=== PATIENT | male | born 1980 | race Caucasian/White ===

== ENCOUNTER 2023-12-29 16:21 | Emergency (ER) | payer OTHER ==
--- OUTSIDE RECORDS SUMMARY | 2023-12-29 16:23 | XMS REPORT | Continuity of Care Document ---
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 Role Phone FLORA DENIS Attending Clinician Unavailable ETHEL DURAN Attending Clinician Unavailable Payers Payer Name Policy Type Policy Number Effective Date Expirati on Date Source [facility] [id number] 2018 00:00:00 Allergies, Adverse Reactions, Alerts Allergy Name Allergy Type Status Severity Reaction(s) Onset Date Inactive Date Treating Clinician Comments Source NO KNOWN ALLERGIE S Drug Class Active [facility] Encounters Start Date/Time End Date/Time Encounter Type Admission Type Attending Clinicians Care Facility Care Department Encounter ID Source 2023-12-19 10:00:00 Inpatient FLORA MATHEWS [facility] [id number] [facility] 2023-12-11 09:37:00 2023-12-11 09:37:00 Outpatient FLORA MATHEWS [facility] [id number] [facility] 2019-07-24 08:20:00 2019-07-24 08:20:00 Outpatient ETHEL [facility] [id number] [facility]
[2023-12-29] MEDS ORDERED: ONDANSETRON 4 MG/2 ML VIAL ONE ×2 (17:15→20:13)
[2023-12-29] MEDS ORDERED: MORPHINE 4 MG/ML SYR ONE ×2 (17:16→20:14)
[2023-12-29] MEDS ORDERED: ASPIRIN 81 MG CHEWABLE TABLET ONE (17:16)
[2023-12-29] MEDS ORDERED: FAMOTIDINE 20 MG/2 ML VIAL IV ONE (17:17)
[2023-12-29 17:44] LABS: Absolute Basophils 0.1 K/uL (0-0.5); Absolute Eosinophils 0.2 K/uL (0-0.5); Absolute Lymphocytes (CBC) 3.2 K/uL (0.7-4.9); Absolute Monocytes 0.6 K/uL (0.1-1.3); Absolute Neutrophil 5.7 K/uL (1.8-8.0); Basophils % 0.7 % (0-1.3); Eosinophils % 1.6 % (0-4.4); Hematocrit 38.8 % (39.6-49.0); Lymphocytes % 33.3 % (15.3-44.8); MCH 29.3 pg (27.0-35.0); MCHC 33.6 g/dL (32.0-36.0); MCV 87.2 fL (80-100); MPV 9.8 fL (7.6-11.3); Monocytes % 6.1 % (3.3-12.3); Neutrophils % 58.3 % (41.7-73.7); Platelets 290 thou/uL (152-406); RBC Red Blood Cell Count 4.45 M/uL (4.33-5.43); Red Cell Distribution Width 13.6 % (12.1-15.2)
[2023-12-29 17:46] LABS: PT Prothrombin Time 11.6 SECONDS (9.4-12.5); Protime INR 1.04
[2023-12-29 18:02] LABS: ALT/SGPT 29 U/L (16-61); AST/SGOT 12 U/L (15-37); Albumin 3.9 g/dL (3.4-5.0); Albumin/Globulin Ratio 1.1 (1.1-1.8); Alkaline Phosphatase 49 U/L (45-117); Anion Gap 11.7 mEq/L (5.0-15.0); BUN Blood Urea Nitrogen 13 mg/dL (7-18); Bicarbonate 23 mEq/L (21-32); Bilirubin Direct < 0.2 mg/dL (0-0.2); Bilirubin Total 0.2 mg/dL (0.2-1.0); Globulin 3.4 g/dL (2.3-3.5); Glomerular Filtration Rate 107 ml/min (=/>90); Glucose Level 111 mg/dL (74-106); Lipase 28 U/L (13-75); Magnesium 1.7 mg/dL (1.6-2.4); NT PRO-BNP 8 pg/mL (<125); Potassium 3.7 mEq/L (3.5-5.1); Protein, Total 7.3 g/dL (6.4-8.2); Sodium Level 139 mEq/L (136-145); Troponin High Sensitivity 3.1 pg/mL (<58.9)
[2023-12-29 18:28] LABS: Specific Gravity 1.018 (1.005-1.030); Sqamous Epithelial <5 /HPF (None Seen); Urine Bacteria None Seen /HPF (<20); Urine Bilirubin NEGATIVE (Negative); Urine Blood Negative (Negative); Urine Clarity Clear (Clear); Urine Color Light-Yellow (Yellow); Urine Culture Reflex Order NOT NEEDED; Urine Glucose NEGATIVE (Negative); Urine Ketones NEGATIVE (Negative); Urine Microscopic Reflex YN ORDER UMIC; Urine Nitrite NEGATIVE (Negative); Urine Protein NEGATIVE (Negative); Urine RBC None Seen /HPF (None Seen); Urine Urobilinogen Normal (Normal); Urine WBC <5 /HPF (<5); Urine pH 5.5 (5.0-7.0)
--- NOTE | 2023-12-29 18:49 | RAD REPORT ---
EXAM DESCRIPTION: [place] Single View12/29/2023 5:34 pm CLINICAL HISTORY: CHEST PAIN COMPARISON: Chest Pa And Lat (2 Views) dated 08/18/2019 TECHNIQUE: Portable AP view of the chest. FINDINGS: The lungs are clear. No pneumothorax or effusion. The cardiomediastinal contours are unre markable. IMPRESSION: No acute cardiopulmonary process.
--- NOTE | 2023-12-29 19:09 | RAD REPORT ---
EXAM DESCRIPTION: CT - Angio Aorta For Dissection - 12/29/2023 6:55 pm CLINICAL HISTORY: pe;Dissection COMPARISON: Abdomen Pelvis W Contrast dated 02/25/2017 TECHNIQUE: Thin axial CT images of the chest, abdomen, and pelvis were obtained during administratio n of intravenous iodinated contrast. Sagittal and coronal reconstructions as well as maximal intensit y projection reconstruction were generated and reviewed per an aortic angiography protocol. All CT scans are performed using dose optimization technique as appropriate and may include automated exposure control or mA/KV adjustment according to patient size. FINDINGS: Aorta is normal in diameter with no dissection or other acute aortic findings. No aneurysm al dilation or dissection. Reconstruction images show no significant findings. Pulmonary arteries are normal as well, allowing for the degree of contrast opacification of the pulmo nary arterial tree. No mass or infiltrate in the lung parenchyma. No pleural thickening, pleural effusion or pneumothorax . No abnormal mediastinal or hilar mass or lymphadenopathy seen. No chest wall mass or abnormal axillar y lymphadenopathy. Celiac, SMA and renal arteries show no suspicious findings. A left adrenal 1.6 cm nodule is new since 2017. Status post cholecystectomy. Solid abdominal viscera and bowel show no significant findings. N o mass or abnormal lymphadenopathy. IMPRESSION: No acute abnormalities on CT angiogram of the aorta. Incidentally noted left adrenal 1.6 cm nodule, new since 2017. If history of cancer is present, consi adrianna excision/biopsy versus PET-CT evaluation. If no history of cancer is present, consideration can a lso be given to adrenal protocol CT, or chemical shift MRI, for improved evaluation, on an outpatient basis.
[2023-12-29 20:06] LABS: D-Dimer < 0.215 FEUug/mL (0-0.500)
[2023-12-29] MEDS ORDERED: KETOROLAC 30 MG/ML INJ ONE (20:13)
--- NOTE | 2023-12-29 20:29 | ER ---
Nurse's Notes [facility] Name: Franky Caldwell Age: 43 yrs Sex: Male : 1980 Arrival Date: 12/29/2023 Time: 16:21 Bed 3 Private MD: Diagnosis: Chest pain on breathing Presentation: 12/28 16:34 Chief complaint: Patient states: CHEST PAIN AND SOB WHILE WEEDING OUTSIDE X 1 HOUR AGO. db EMS EVALUATED PT AND PT DECIDED TO COME BY PRIVATE CAR. Coronavirus screen: Client denies travel out of the [place] in the last 14 days. At this time, the client does not indicate any symptoms associated with coronavirus-19. Ebola Screen: Patient negative for fever greater than or equal to 101.5 degrees Fahrenheit, and additional compatible Ebola Virus Disease symptoms Patient denies exposure to infectious person. Patient denies travel to an Ebola-affected area in the 21 days before illness onset. No symptoms or risks identified at this time. Initial Sepsis Screen: Does the patient meet any 2 criteria? No. Patient's initial sepsis screen is negative. Does the patient have a suspected source of infection? No. Patient's initial sepsis screen is negative. Risk Assessment: Do you want to hurt yourself or someone else? Patient reports no desire to harm self or others. Onset of symptoms was December 29, 2023. 16:34 Method Of Arrival: Ambulatory db 16:34 Acuity: OBED 2 db Triage Assessment: 16:38 General: Appears in no apparent distress. comfortable, Behavior is calm, cooperative, db appropriate for age. Pain: Complains of pain in chest. Neuro: Level of Consciousness is awake, alert, obeys commands, Oriented to person, place, time, situation. Cardiovascular: Reports chest pain, fatigue, lightheadedness, shortness of breath. Historical: - Allergies: 16:38 No Known Allergies; db - PMHx: 16:38 Gout; Hyperlipidemia; Hypertension; Diabetes mellitus; db - PSHx: 16:38 Cholecystectomy; ABDOMINAL HERNIA; db - Immunization history:: Adult Immunizations unknown. - Infectious Disease History:: Denies. - Social history:: Smoking status: Patient reports the use of cigarette tobacco products, smokes one-half pack cigarettes per day. - Family history:: not pertinent. Screenin:09 [facility] ED Fall Risk Assessment (Adult) History of falling in the last 3 months, ar6 including since admission No falls in past 3 months (0 pts) Confusion or Disorientation No (0 pts) Intoxicated or Sedated No (0 pts) Impaired Gait No (0 pts) Mobility Assist Device Used No (0 pt) Altered Elimination No (0 pt) Score/Fall Risk Level 0 - 2 = Low Risk Oriented to surroundings, Maintained a safe environment, Educated pt \T\ family on fall prevention, incl call for assistance when getting out of bed, Hourly rounding (assess needs \T\ fall precautionary measures) done. Abuse screen: Denies threats or abuse. Denies injuries from another. Nutritional screening: No deficits noted. Tuberculosis screening: No symptoms or risk factors identified. Assessment: 17:11 General: Appears in no apparent distress. Behavior is calm, cooperative, appropriate ar6 for age. Pain: Complains of pain in chest Pain does not radiate. Pain currently is 3 out of 10 on a pain scale. at worst was 8 out of 10 on a pain scale. Quality of pain is described as dull, pt. reports chest pain worsens with exertion and when taking a deep breath Pain began suddenly, 1 hour ago. Neuro: Level of Consciousness is awake, alert, obeys commands, Oriented to person, place, time, situation. Cardiovascular: Capillary refill < 3 seconds. Respiratory: Airway is patent. GI: Abdomen is round non-distended. : No signs and/or symptoms were reported regarding the genitourinary system. EENT: Oral mucosa is moist. Derm: Skin is intact, is healthy with good turgor, Skin is dry. Musculoskeletal: No signs and/or symptoms reported regarding the musculoskeletal system. 19:34 General: Appears in no apparent distress. Behavior is calm, cooperative. Pain: al5 Complains of pain in chest. Neuro: Level of Consciousness is awake, alert, obeys commands, Oriented to person, place, time, situation. Cardiovascular: Reports chest pain, Capillary refill < 3 seconds Patient's skin is warm and dry. GI: No signs and/or symptoms were reported involving the gastrointestinal system. : No signs and/or symptoms were reported regarding the genitourinary system. EENT: No signs and/or symptoms were reported regarding the EENT system. Derm: Skin is intact, Skin is pink, warm \T\ dry. Musculoskeletal: No signs and/or symptoms reported regarding the musculoskeletal system. Vital Signs: 16:34 BP 129 / 81; Pulse 90; Resp 18; Temp 98.6; Pulse Ox 96% on R/A; Weight 102.06 kg; db Height 5 ft. 10 in. ; Pain 4/10; 17:09 BP 114 / 76; Pulse 89; Resp 16; Pulse Ox 97% on R/A; Weight 99.79 kg; Height 5 ft. 10 ar6 in. ; Pain 3/10; 17:51 BP 127 / 83; Pulse 82; Resp 16; Pulse Ox 96% on R/A; ar6 19:34 BP 128 / 75; Pulse 74; Resp 16; Pulse Ox 100% on R/A; al5 20:00 BP 118 / 78; Pulse 74; Resp 16; Pulse Ox 100% on R/A; al5 20:30 BP 127 / 76; Pulse 71; Resp 16; Pulse Ox 98% ; al5 17:09 Body Mass Index 31.57 (99.79 kg, 177.8 cm) ar6 16:34 Pain Scale: Adult db 17:09 Pain Scale: Adult ar6 Plummer Coma Score: 17:16 Eye Response: spontaneous(4). Motor Response: obeys commands(6). Verbal Response: miley oriented(5). Total: 15. ED Course: 16:23 Patient arrived in ED. mr 16:38 Triage completed. db 16:38 Arm band placed on Patient placed in waiting room. db 16:51 Al Woody MD is Attending Physician. miley 17:06 Pam Rosales, RN is Primary Nurse. ar6 17:09 No apparent distress. ar6 17:09 Patient has correct armband on for positive identification. Bed in low position. Call ar6 light in reach. Side rails up X2. Provided Education on: plan of care. Client placed on continuous cardiac and pulse oximetry monitoring. NIBP monitoring applied. Door closed. Noise minimized. Lights dimmed. Warm blanket given. Head of bed elevated. 17:09 No provider procedures requiring assistance completed. Patient maintains SpO2 ar6 saturation greater than 95% on room air. 17:28 Basic Metabolic Panel Sent. ar6 17:28 CBC with Diff Sent. ar6 17:28 LFT's Sent. ar6 17:28 Magnesium Sent. ar6 17:28 NT PRO-BNP Sent. ar6 17:28 PT-INR Sent. ar6 17:28 Troponin HS Sent. ar6 17:36 XRAY Chest (1 view) In Process Unspecified. EDMS 18:16 Urinalysis w/ reflexes Sent. ar6 18:43 Troponin High Sensitivity: 630 pm Sent. ar6 18:43 Troponin High Sensitivity Sent. ar6 18:57 CT Aorta for Dissection In Process Unspecified. EDMS 19:33 Ingrid Segal, RN is Primary Nurse. al5 19:56 US Extremity Venous W Compression Umair In Process Unspecified. EDMS 20:28 [facility] sb4 20:29 Sg Ybarra MD is Referral Physician. sb4 20:53 IV discontinued, intact, bleeding controlled, No redness/swelling at site. Pressure al5 dressing applied. Administered Medications: 17:27 Drug: Aspirin PO Chewable Tablet 162 mg PO once Route: PO; ar6 18:33 Follow up: Response: No adverse reaction ar6 17:27 Drug: Famotidine IVP 20 mg IVP once; dilute with 10 mL 0.9% NaCl; give over 2 minutes ar6 Route: IVP; Site: left forearm; 18:33 Follow up: Response: No adverse reaction ar6 17:27 Drug: morphine IVP or IV 4 mg IVP once over 4 mins Route: IVP; Infused Over: 4 mins; ar6 Site: left forearm; 18:33 Follow up: Response: No adverse reaction; Pain is decreased ar6 17:27 Drug: Ondansetron IVP 4 mg IVP once; over 2 minutes Route: IVP; Site: left forearm; ar6 18:33 Follow up: Response: No adverse reaction ar6 20:20 Drug: Ketorolac IVP 30 mg IVP once Route: IVP; Site: left forearm; al5 20:57 Follow up: Response: No adverse reaction; Pain is decreased al5 20:20 Drug: Ondansetron IVP 4 mg IVP once; over 2 minutes Route: IVP; Site: left forearm; al5 20:57 Follow up: Response: No adverse reaction; Nausea is decreased al5 20:20 Drug: morphine IVP or IV 4 mg IVP once over 4 mins Route: IVP; Infused Over: 4 mins; al5 Site: left forearm; 20:56 Follow up: Response: No adverse reaction; Pain is decreased al5 Medication: 17:09 VIS not applicable for this client. ar6 Outcome: 20:29 Discharge ordered by . sb4 20:53 Discharged to home ambulatory, with significant other, al5 20:53 Condition: good 20:53 Discharge instructions given to patient, Instructed on discharge instructions, follow up and referral plans. medication usage, Demonstrated understanding of instructions, follow-up care, medications, 20:53 Prescriptions given X 4, al5 20:57 Patient left the ED. al5 Signatures: Dispatcher [employer] EDKY Al Woody MD MD cha Rivera, Mary, Reg Reg mr Yue Locke, RN RN db Miryam Clark, PA-C PA-C [email or web address] Ingrid Segal RN RN al5 Pam Rosales, STEFANO RN ar6 Corrections: (The following items were deleted from the chart) 16:39 16:38 PSHx: None; abdullahi fernando
--- NOTE | 2023-12-29 20:29 | EDPHYS ---
Physician Documentation [facility] Name: Franky Caldwell Age: 43 yrs Sex: Male : 1980 Arrival Date: 12/29/2023 Time: 16:21 Bed 3 Private MD: ED Physician Al Woody HPI: 12/28 17:07 This 43 yrs old Male presents to ER via Ambulatory with complaints of Chest miley Pain, Back Pain, Breathing Difficulty. 17:07 The patient or guardian reports chest pain that is located primarily in the anterior miley chest wall, bilaterally. Onset: 2 hour(s) ago. The pain does not radiate. Associated signs and symptoms: The patient has no apparent associated signs or symptoms. The chest pain is described as sharp. Duration: The patient or guardian reports multiple episodes, that are intermittent. Modifying factors: The symptoms are alleviated by remaining still, the symptoms are aggravated by breathing, movement, twisting torso. Severity of pain: At its worst the pain was moderate in the emergency department the pain is unchanged. The patient has not experienced similar symptoms in the past. Historical: - Allergies: 16:38 No Known Allergies; db - PMHx: 16:38 Gout; Hyperlipidemia; Hypertension; Diabetes mellitus; db - PSHx: 16:38 Cholecystectomy; ABDOMINAL HERNIA; db - Immunization history:: Adult Immunizations unknown. - Infectious Disease History:: Denies. - Social history:: Smoking status: Patient reports the use of cigarette tobacco products, smokes one-half pack cigarettes per day. - Family history:: not pertinent. ROS: 17:07 Constitutional: Negative for fever, chills, and weight loss, Eyes: Negative for injury, miley pain, redness, and discharge, ENT: Negative for injury, pain, and discharge, Neck: Negative for injury, pain, and swelling, Abdomen/GI: Negative for abdominal pain, nausea, vomiting, diarrhea, and constipation, Back: Negative for injury and pain, : Negative for injury, bleeding, discharge, and swelling, MS/Extremity: Negative for injury and deformity, Skin: Negative for injury, rash, and discoloration, Neuro: Negative for headache, weakness, numbness, tingling, and seizure, Psych: Negative for depression, anxiety, suicide ideation, homicidal ideation, and hallucinations, Allergy/Immunology: Negative for hives, rash, and allergies, Endocrine: Negative for neck swelling, polydipsia, polyuria, polyphagia, and marked weight changes, Hematologic/Lymphatic: Negative for swollen nodes, abnormal bleeding, and unusual bruising, 17:07 Cardiovascular: Positive for chest pain, of the chest, 17:07 Respiratory: Positive for cough, pleurisy, of the chest, shortness of breath, 17:07 MS/extremity: Positive for injury or acute deformity, decreased range of motion, swelling, tenderness, Exam: 17:07 Constitutional: This is a well developed, well nourished patient who is awake, alert, miley and in no acute distress. Head/Face: Normocephalic, atraumatic. Eyes: Pupils equal round and reactive to light, extra-ocular motions intact. Lids and lashes normal. Conjunctiva and sclera are non-icteric and not injected. Cornea within normal limits. Periorbital areas with no swelling, redness, or edema. ENT: Nares patent. No nasal discharge, no septal abnormalities noted. Tympanic membranes are normal and external auditory canals are clear. Oropharynx with no redness, swelling, or masses, exudates, or evidence of obstruction, uvula midline. Mucous membranes moist. Neck: Trachea midline, no thyromegaly or masses palpated, and no cervical lymphadenopathy. Supple, full range of motion without nuchal rigidity, or vertebral point tenderness. No Meningismus. Chest/axilla: Normal chest wall appearance and motion. Nontender with no deformity. No lesions are appreciated. Respiratory: Lungs have equal breath sounds bilaterally, clear to auscultation and percussion. No rales, rhonchi or wheezes noted. No increased work of breathing, no retractions or nasal flaring. Abdomen/GI: Soft, non-tender, with normal bowel sounds. No distension or tympany. No guarding or rebound. No evidence of tenderness throughout. Back: No spinal tenderness. No costovertebral tenderness. Full range of motion. Male : Normal genitalia with no discharge or lesions. Skin: Warm, dry with normal turgor. Normal color with no rashes, no lesions, and no evidence of cellulitis. MS/ Extremity: Pulses equal, no cyanosis. Neurovascular intact. Full, normal range of motion. Neuro: Awake and alert, GCS 15, oriented to person, place, time, and situation. Cranial nerves II-XII grossly intact. Motor strength 5/5 in all extremities. Sensory grossly intact. Cerebellar exam normal. Normal gait. Psych: Awake, alert, with orientation to person, place and time. Behavior, mood, and affect are within normal limits. 17:07 Cardiovascular: Rate: normal, actual rate is 89 bpm, Rhythm: regular, Pulses: Pulses are 4+ in bilateral radial, brachial, femoral, popliteal, posterior tibial and and dorsalis pedis arteries.. Heart sounds: normal, Edema: is not appreciated, JVD: is not appreciated, 17:07 ECG was reviewed by the Attending Physician. 17:16 Musculoskeletal/extremity: ROM: intact in all extremities, full active range of motion, miley full passive range of motion, Circulation is intact in all extremities. Sensation intact. Compartment Syndrome exam of affected extremity: is normal. Weight bearing: able to fully bear weight, DVT Exam: No signs of deep vein thrombosis. no pain, no swelling, no tenderness, negative Homans' sign noted on exam, no appreciated bluish discoloration, no erythema, no increased warmth, Vital Signs: 16:34 BP 129 / 81; Pulse 90; Resp 18; Temp 98.6; Pulse Ox 96% on R/A; Weight 102.06 kg; db Height 5 ft. 10 in. ; Pain 4/10; 17:09 BP 114 / 76; Pulse 89; Resp 16; Pulse Ox 97% on R/A; Weight 99.79 kg; Height 5 ft. 10 ar6 in. ; Pain 3/10; 17:51 BP 127 / 83; Pulse 82; Resp 16; Pulse Ox 96% on R/A; ar6 19:34 BP 128 / 75; Pulse 74; Resp 16; Pulse Ox 100% on R/A; al5 20:00 BP 118 / 78; Pulse 74; Resp 16; Pulse Ox 100% on R/A; al5 20:30 BP 127 / 76; Pulse 71; Resp 16; Pulse Ox 98% ; al5 17:09 Body Mass Index 31.57 (99.79 kg, 177.8 cm) ar6 16:34 Pain Scale: Adult db 17:09 Pain Scale: Adult ar6 Bart Coma Score: 17:16 Eye Response: spontaneous(4). Motor Response: obeys commands(6). Verbal Response: miley oriented(5). Total: 15. MDM: 16:51 Patient medically screened. miley 17:11 Differential diagnosis: abnormal EKG, acute myocardial infarction, acute pericarditis, miley anxiety, coronary artery disease chest wall pain, Cholelithiasis costochondritis, esophagitis, myocarditis, pancreatitis, peptic ulcer disease, pleurisy, pneumonia, pneumothorax, pulmonary embolus, stable angina, thoracic aortic disection, unstable angina. HEART Score: History: Slightly Suspicious (0), ECG: Normal (0), Age: < or = 45 years (0), Risk Factors: > or = 3 Risk factors for atherosclerotic disease (2), [Hypercholesterolemia] [Hypertension] [DM] [+ Family HX] [Obesity] Troponin: < or = 1 x Normal Limit (0). The patient was given aspirin in the Emergency Department. [place] Risk Score: 1 - Three or more CAD risk factors, TOTAL SCORE = 1. Data reviewed: vital signs, nurses notes, lab test result(s), EKG, radiologic studies, CT scan, plain films. Consideration of Admission/Observation Escalation of care including admission/observation considered. I considered the following discharge prescriptions or medication management in the emergency department Medications were administered in the Emergency Department. See MAR. Independent interpretation of the following test(s) in the Emergency Department EKG: See my EKG interpretation above. Test considered but Not performed: Ultrasound no 2 d echo. Historians other than the Patient: Spouse/Significant Other: well informed. Care significantly affected by the following chronic conditions: Diabetes, Hypertension, Obesity. 12/28 17:06 Order name: Basic Metabolic Panel; Complete Time: 18:22 [facility] 12/28 17:06 Order name: CBC with Diff; Complete Time: 18:22 [facility] 12/28 17:06 Order name: LFT's; Complete Time: 18:22 [facility] 12/28 17:06 Order name: Magnesium; Complete Time: 18:22 [facility] 12/28 17:06 Order name: NT PRO-BNP; Complete Time: 18:22 [facility] 12/28 17:06 Order name: PT-INR; Complete Time: 20:29 [facility] 12/28 17:06 Order name: Troponin HS; Complete Time: 18:22 [facility] 12/28 17:06 Order name: Lipase; Complete Time: 18:22 [facility] 12/28 17:06 Order name: Urinalysis w/ reflexes; Complete Time: 19:15 [facility] 12/28 18:33 Order name: Troponin High Sensitivity; Complete Time: 19:15 sp 12/28 19:46 Order name: D-Dimer; Complete Time: 20:29 EDMS 12/28 17:06 Order name: XRAY Chest (1 view); Complete Time: 19:15 miley 12/28 17:06 Order name: CT Aorta for Dissection; Complete Time: 19:15 miley 12/28 19:01 Order name: US Extremity Venous W Compression Umair; Complete Time: 20:55 [facility] 12/28 17:06 Order name: EKG; Complete Time: 17:06 [facility] 12/28 19:38 Order name: EKG; Complete Time: 19:39 [facility] 12/28 17:06 Order name: Cardiac monitoring; Complete Time: 17:13 [facility] 12/28 17:06 Order name: EKG - Nurse/Tech; Complete Time: 17:13 [facility] 12/28 17:06 Order name: IV Saline Lock; Complete Time: 17:13 [facility] 12/28 17:06 Order name: Labs collected and sent; Complete Time: 17:13 [facility] 12/28 17:06 Order name: O2 Per Protocol; Complete Time: 17:13 [facility] 12/28 17:06 Order name: O2 Sat Monitoring; Complete Time: 17:13 [facility] 12/28 19:38 Order name: EKG - Nurse/Tech; Complete Time: 20:12 [facility] EC:07 Rate is 89 beats/min. Rhythm is regular. QRS [place] is Normal. OK interval is normal. QT miley interval is normal. No Q waves. T waves are Normal. No ST changes noted. Clinical impression: NSR w/ Non-specific ST/T Changes and No evidence of ischemia. Interpreted by me. Reviewed by me. Administered Medications: 17:27 Drug: Aspirin PO Chewable Tablet 162 mg PO once Route: PO; ar6 18:33 Follow up: Response: No adverse reaction ar6 17:27 Drug: Famotidine IVP 20 mg IVP once; dilute with 10 mL 0.9% NaCl; give over 2 minutes ar6 Route: IVP; Site: left forearm; 18:33 Follow up: Response: No adverse reaction ar6 17:27 Drug: morphine IVP or IV 4 mg IVP once over 4 mins Route: IVP; Infused Over: 4 mins; ar6 Site: left forearm; 18:33 Follow up: Response: No adverse reaction; Pain is decreased ar6 17:27 Drug: Ondansetron IVP 4 mg IVP once; over 2 minutes Route: IVP; Site: left forearm; ar6 18:33 Follow up: Response: No adverse reaction ar6 20:20 Drug: Ketorolac IVP 30 mg IVP once Route: IVP; Site: left forearm; al5 20:57 Follow up: Response: No adverse reaction; Pain is decreased al5 20:20 Drug: Ondansetron IVP 4 mg IVP once; over 2 minutes Route: IVP; Site: left forearm; al5 20:57 Follow up: Response: No adverse reaction; Nausea is decreased al5 20:20 Drug: morphine IVP or IV 4 mg IVP once over 4 mins Route: IVP; Infused Over: 4 mins; al5 Site: left forearm; 20:56 Follow up: Response: No adverse reaction; Pain is decreased al5 Disposition Summary: 12/29/23 20:29 Discharge Ordered Notes: Location: Home sb4 Problem: new sb4 Symptoms: have improved sb4 Condition: Stable sb4 Diagnosis - Chest pain on breathing sb4 Followup: miley - With: Private Physician - When: 2 - 3 days - Reason: Recheck today's complaints, Continuance of care, Re-evaluation by your physician Followup: miley - With: Sg Ybarra MD - When: 2 - 3 days - Reason: Recheck today's complaints, Re-evaluation by your physician Discharge Instructions: - Discharge Summary Sheet miley - Nonspecific Chest Pain, Adult miley - Chest Wall Pain imley - Costochondritis miley - Chest Wall Pain, [id number] [facility] Forms: - Medication Reconciliation Form sb4 - Antibiotic Education sb4 - Prescription Opioid Use sb4 - Patient Portal Instructions sb4 - Leadership Thank You Letter sb4 Prescriptions: - acetaminophen-codeine 300-30 mg Oral tablet - take 2 tablet ORAL route every 6 hours as needed for pain; 20 tablet; Refills: miley 0, Product Selection Permitted - Pepcid 20 mg Oral Tablet - take 1 tablet ORAL route every 12 hours for 10 days; 20 tablet; Refills: 0, miley Product Selection Permitted - Diclofenac Sodium 75 mg Oral tablet, delayed release (enteric coated) - take 1 tablet ORAL route 2 times per day; 20 tablet; Refills: 0, Product miley Selection Permitted - Medrol (Zachery) 4 mg Oral Tablets, Dose Pack - take 1 tablet ORAL route as directed - follow package instructions; 1 packet; miley Refills: 0, Product Selection Permitted Signatures: Dispatcher [employer] EDAl Sinha MD MD cha Benton, Danielle, RN RN db Miryam Clark PAKeenan PAKeenan sb4 Ingrid Segal RN RN al5 Pam Rosales, RN RN ar6 Corrections: (The following items were deleted from the chart) 16:39 16:38 PSHx: None; db db 17:06 17:06 BASIC METABOLIC PANEL+C.LAB.BRZ ordered. EDMS EDMS 17:06 17:06 CBC+H.LAB.BRZ ordered. EDMS EDMS 17:06 17:06 HEPATIC FUNCTION+C.LAB.BRZ ordered. EDMS EDMS 17:06 17:06 MAGNESIUM+C.LAB.BRZ ordered. EDMS EDMS 17:06 17:06 PROBNP+C.LAB.BRZ ordered. EDMS EDMS 17:06 17:06 PROTIME (+INR)+COAG.LAB.BRZ ordered. EDMS EDMS 17:06 17:06 Troponin High Sensitivity+C.LAB.BRZ ordered. EDMS EDMS 17:06 17:06 LIPASE+C.LAB.BRZ ordered. EDMS EDMS 19:47 19:41 D-DIMER+COAG.LAB.BRZ ordered. EDMS EDMS
--- NOTE | 2023-12-29 20:55 | RAD REPORT ---
EXAM DESCRIPTION: US - Extrem Venous W Compress Umair - 12/29/2023 7:54 pm CLINICAL HISTORY: Pain. Shortness of breath COMPARISON: None. TECHNIQUE: Real-time sonographic evaluation of the bilateral lower extremity deep venous systems was performed. FINDINGS: Normal compressibility, flow augmentation, phasic flow and spontaneous flow is identified in both the left and right lower extremity deep venous systems. No intraluminal filling defects seen. IMPRESSION: No DVT in either lower extremity.
[2023-12-29 21:31] VITALS: TEMP 98.6
[2023-12-29 21:36] VITALS: BP 128/75; O2SAT 100
--- NOTE | 2023-12-31 17:02 | EKG ---
Test Date: 2023-12-29 Test Time: 20:04:31 Telecommunication Tower Technician: MIROSLAVA MEASUREMENT RESULTS: Intervals: Rate: 73 MD: 210 QRSD: 98 QT: 390 QTc: 429 [place]: P: 59 MD: 210 QRS: 58 T: 54 INTERPRETIVE STATEMENTS: Sinus rhythm with 1st degree AV block Otherwise normal ECG Compared to ECG 12/29/2023 16:47:17 First degree AV block now present Electronically Signed On 12-31-23 16:59:40 CDT by Sg Ybarra
--- NOTE | 2023-12-31 17:03 | EKG ---
Test Date: 2023-12-29 Test Time: 16:47:17 Parts Facilitator: ADRIENNE MEASUREMENT RESULTS: Intervals: Rate: 89 ME: 176 QRSD: 94 QT: 354 QTc: 430 [place]: P: 67 ME: 176 QRS: 55 T: 51 INTERPRETIVE STATEMENTS: Normal sinus rhythm Normal ECG No previous ECG available for comparison Electronically Signed On 12-31-23 16:59:54 CDT by Sg Ybarra
== END 2023-12-29 20:57 | disposition home or self-care (01) ==
LOC: ER 16:21
DX: R07.1 Chest pain on breathing (principal); I10 Essential (primary) hypertension; E11.9 Type 2 diabetes mellitus without complications; F17.210 Nicotine dependence, cigarettes, uncomplicated
CPT/HCPCS: 93005 ×2; 85025; 81001; 80048; 36415; 83735; 85610; 85379; 80076; 84484 ×2; 83690; 83880; 71275; 74175; 71045; 93970; 96375; 96374; 99284; Q9967; J2405 ×2